=== PATIENT | female | born 1980 | race American Indian/Alaskan Native ===

== ENCOUNTER 2018-11-03 10:09 | Emergency (ER) | payer MEDICAID ==
[2018-11-03 10:09] VITALS: BMI 36.0
[2018-11-03] MEDS ORDERED: Albuterol-Ipratrop 3 mg / 0.5 (3 ml) UD IH STA (10:32)
--- NOTE | 2018-11-03 10:50 | ED PDOC ---
Arrival/HPI - General Chief Complaint: Shortness Of Breath Time Seen by Provider: 11/03/18 10:14 Historian: Patient - History of Present Illness Narrative History of Present Illness (Text): 37 year old female, with past medical history of asthma, currently on her menstrual cycle since yesterday, presents to the ED complaining of shortness of breath, cough and nasal congestion since past 4 days. Patient reports similar but mildly different symptoms to past episodes of asthma exacerbation. She notes symptoms were treated with steroids and Duoneb with mild improvement to symptoms. Patient reports associated mild chest pain and fever but no leg swelling, no recent flying, history of blood clots or any OCP usage. Patient denies any chills, headache, dizziness, diaphoresis, abdominal pain, nausea, vomiting, diarrhea, back pain, neck pain, urinary symptoms, headache, dizziness or any other complaints. Time/Duration: < week Symptom Onset: Gradual Symptom Course: Unchanged Activities at Onset: Light Context: Home Past Medical History - Provider Review Nursing Documentation Reviewed: Yes - Infectious Disease Hx of Infectious Diseases: None - Cardiac Hx Cardiac Disorders: No - Pulmonary Hx Asthma: Yes - Neurological Hx Neurological Disorder: No - HEENT Hx HEENT Disorder: No - Renal Hx Renal Disorder: No - Endocrine/Metabolic Hx Endocrine Disorders: No - Hematological/Oncological Hx Blood Disorders: No - Integumentary Hx Dermatological Disorder: No - Musculoskeletal/Rheumatological Hx Musculoskeletal Disorders: No - Gastrointestinal Hx Gastrointestinal Disorders: No - Genitourinary/Gynecological Hx Genitourinary Disorders: No - Psychiatric Hx Depression: No Hx Substance Use: No - Surgical History Hx Tubal Ligation: Yes - Anesthesia Hx Anesthesia: Yes Hx Anesthesia Reactions: No Hx Malignant Hyperthermia: No - Suicidal Assessment Feels Threatened In Home Enviroment: No Family/Social History - Physician Review Nursing Documentation Reviewed: Yes Family/Social History: Unknown Family HX Smoking Status: Former Smoker Hx Alcohol Use: No (socially) Hx Substance Use: No Hx Substance Use Treatment: No Allergies/Home Meds Allergies/Adverse Reactions: Allergies No Known Allergies Allergy (Verified 11/03/18 10:15) Review of Systems - Physician Review All systems were reviewed & negative as marked: Yes - Review of Systems Constitutional: Fevers Eyes: absent: Vision Changes ENT: Other (Nasal congestion) Respiratory: SOB, Cough Cardiovascular: Chest Pain. absent: Edema Gastrointestinal: absent: Abdominal Pain, Diarrhea, Nausea, Vomiting Genitourinary Female: absent: Dysuria, Frequency, Urine Output Changes Musculoskeletal: absent: Back Pain, Neck Pain Skin: absent: Rash Neurological: absent: Headache, Dizziness, Focal Weakness Endocrine: absent: Diaphoresis Psychiatric: absent: Anxiety Physical Exam Temperature: Afebrile Blood Pressure: Normal Pulse: Regular Respiratory Rate: Normal Appearance: Positive for: Well-Appearing, Non-Toxic, Comfortable Pain Distress: None Mental Status: Positive for: Alert and Oriented X 3 - Systems Exam Head: Present: Atraumatic, Normocephalic Pupils: Present: PERRL Extroacular Muscles: Present: EOMI Conjunctiva: Present: Normal Ears: Present: Normal, NORMAL TM, Normal Canal. No: Erythema Mouth: Present: Moist Mucous Membranes Pharnyx: Present: Normal. No: ERYTHEMA, EXUDATE, TONSILS ENLARGED Nose (External): Present: Atraumatic Nose (Internal): Present: Clear Mucous. No: Engorged, Edematous, Rhinorrhea, Purulent Mucous Neck: Present: Normal Range of Motion. No: Meningeal Signs, MIDLINE TENDERNESS Respiratory/Chest: Present: Clear to Auscultation, Good Air Exchange. No: Respiratory Distress, Accessory Muscle Use, Wheezes Cardiovascular: Present: Regular Rate and Rhythm, Normal S1, S2. No: Murmurs Abdomen: No: Tenderness, Distention, Peritoneal Signs Back: Present: Normal Inspection. No: CVA Tenderness, Midline Tenderness Upper Extremity: Present: Normal Inspection. No: Cyanosis, Edema Lower Extremity: Present: Normal Inspection. No: Edema Neurological: Present: GCS=15, CN II-XII Intact, Speech Normal Skin: Present: Warm, Dry, Normal Color. No: Rashes Psychiatric: Present: Alert, Oriented x 3, Normal Insight, Normal Concentration Medical Decision Making ED Course and Treatment: 11/03/18 10:42 Impression: 37 year old female presents to the ED for evaluation of shortness of breath, cough and nasal congestion since 4 days. Pt was seen previously at [facility] 3d prior and dx w/ asthma. Pt notes no abatement of symptoms however. No wheezes on exam however, given no wheezes will seek PE rule out w/ Dimer. Pt is low pretest wells. No chest pain or abdominal pain. No sinus pressure or meningeal signs. Plan: -- Labs -- Chest X-ray -- Duoneb -- Reassess and disposition Prior Visits: Notes and results from previous visits were reviewed. Progress Notes: 11/03/18 10:54 Patient reports she was supposed to get blood transfusion one month prior. She notes recent visit to [facility], where she did not receive a blood check. Charts reviewed, and showed hemoglobin of 10.4 in labs performed during her last visit to [facility]. 11/03/18 12:30 Chest X-ray reviewed by radiologist, shows no active disease. 11/03/18 14:56 Dimer elevated: CT PE orderd previously labs otherwise largely unremarkable, hgb improved from previous to 10.8. CT chest reviewed by radiologist, shows: IMPRESSION: Unremarkable CT pulmonary angiogram. No pulmonary embolus. Left lower lobe consolidation consistent with pneumonia 11/03/18 15:12 LLL PNA, [id number] score: 0 pt in NAD walking well w/ out desat Lungs CTA b/l w/ out wheezes clear for d/c home with abx scripts, return indications and follow up. Pt notes she has inhaler and additional steroids at home for asthma. Pt agreeable with plan. - RAD Interpretation Radiology Orders: 11/03/18 10:30 CHEST TWO VIEWS (PA/LAT) [RAD] Stat Cdl [employer]: Radiologist - Medication Orders Current Medication Orders: Discontinued Medications Albuterol/Ipratropium (Duoneb 3 Mg/0.5 Mg (3 Ml) Ud) 3 ml IH STAT STA Stop: 11/03/18 10:33 Disposition/Present on Arrival - Present on Arrival Any Indicators Present on Arrival: No History of DVT/PE: No History of Uncontrolled Diabetes: No Urinary Catheter: No History of Decub. Ulcer: No History Surgical Site Infection Following: None - Disposition Have Diagnosis and Disposition been Completed?: Yes Diagnosis: CAP (community acquired pneumonia) Disposition: HOME/ ROUTINE Disposition Time: 15:10 Condition: STABLE Discharge Instructions (ExitCare): Community-Acquired Pneumonia, Adult (DC) Additional Instructions: DIONNE RAYMOND, thank you for letting us take care of you today. Your provider was Corky Beaulieu and you were treated for shortness of breath. The emergency medical care you received today was directed at your acute symptoms. If you were prescribed any medication, please fill it and take as directed. It may take several days for your symptoms to resolve. Return to the Emergency Department if your symptoms worsen, do not improve, or if you have any other problems. Please contact your doctor or call one of the physicians/clinics you have been referred to that are listed on the Patient Visit Information form that is included in your discharge packet. Bring any paperwork you were given at dis charge with you along with any medications you are taking to your follow up visit. Our treatment cannot replace ongoing medical care by a primary care provider outside of the emergency department. Thank you for allowing the [facility] team to be part of your care today. If you had an X-Ray or CT scan: A Radiologist will review the ED reading if any change in treatment is needed we will contact you. If you had a blood, urine, or wound culture: It will take several days for the results, if any change in treatment is needed we will contact you. If you had an STI test: It will take 48 hours for the results. Please call after 1 week if you have not heard back. Prescriptions: Moxifloxacin [Avelox] 400 mg PO DAILY 10 Days #10 tab Referrals: Altagracia Clark MD [Primary Care Provider] - Follow up with primary [facility] [Outside] - [place] up with primary [facility] [place] - Follow up with primary [facility] [Outside] - Follow up with primary Forms: [facility] (Arabic)
[2018-11-03 10:57] VITALS: TEMP 98.5
[2018-11-03 11:32] LABS: BASO # 0.02 K/mm3 (0.0-2.0); BASO % 0.2 % (0.0-3.0); EOS # 0.1 (0.0-0.7); EOS % 0.6 % (1.5-5.0); HEMOGLOBIN 10.8 g/dL (12.0-16.0); LYMPH # 1.8 (1.2-3.4); MEAN CELL VOLUME 85.7 fl (80.0-105.0); MEAN CORPUSCULAR HEMOGLOBIN 26.5 pg (25.0-35.0); MEAN CORPUSCULAR HGB CONC 30.9 g/dl (31.0-37.0); MEAN PLATELET VOLUME 11.2 fl (7.0-11.0); MONO # 1.2 (0.1-0.6); MONO % 10.1 % (1.0-6.0); RBC 4.07 10^6/uL (3.5-6.1); WHITE BLOOD COUNT 11.9 10^3/uL (4.5-11.0)
[2018-11-03 11:41] LABS: ALB/GLOB RATIO 0.9 (1.1-1.8); ALBUMIN 3.6 g/dL (3.0-4.8); ALT/SGPT 13 U/L (7-56); AST/SGOT 25 U/L (14-36); BLOOD UREA NITROGEN 8 mg/dL (7-21); CALCIUM 8.9 mg/dL (8.4-10.5); GFR NON-AFRICAN AMERICAN > 60
[2018-11-03 11:49] LABS: INR 1.25; PARTIAL THROMBOPLASTIN TIME 32.3 Seconds (26.9-38.3); PROTHROMBIN TIME 14.1 SECONDS (9.4-12.5)
[2018-11-03 11:51] LABS: TROPONIN I < 0.01 ng/mL
[2018-11-03] MEDS ORDERED: Sodium Chloride 0.9% 1,000 ML IV ONE (12:00)
--- NOTE | 2018-11-03 12:21 | RAD ---
Date of service: 11/03/2018 HISTORY: cough COMPARISON: No prior. TECHNIQUE: Chest PA and lateral views FINDINGS: LUNGS: No active pulmonary disease. PLEURA: No significant pleural effusion identified. No pneumothorax apparent. CARDIOVASCULAR: No aortic atherosclerotic calcification present. Normal cardiac size. No pulmonary vascular congestion. OSSEOUS STRUCTURES: No significant abnormalities. VISUALIZED UPPER ABDOMEN: Normal. OTHER FINDINGS: None. IMPRESSION: No active disease.
[2018-11-03 13:21] VITALS: RESP 18
[2018-11-03] MEDS ORDERED: Iohexol 350 MG/100 ML VIAL ONE (14:11)
--- NOTE | 2018-11-03 14:53 | CT ---
Date of service: 11/03/2018 PROCEDURE: CT Chest with contrast (Pulmonary Angiogram) HISTORY: elevated dimer, cough COMPARISON: None available. TECHNIQUE: Axial computed tomography images were obtained of the chest in the pulmonary arterial phase of enhancement. Coronal and sagittal reformatted images were created and reviewed. Intravenous contrast dose: 100 cc of Omni 350 Radiation dose: Total exam DLP = 478.83 mGy-cm. This CT exam was performed using one or more of the following dose reduction techniques: Automated exposure control, adjustment of the mA and/or kV according to patient size, and/or use of iterative reconstruction technique. FINDINGS: PULMONARY ARTERIES: Unremarkable. No pulmonary embolism. AORTA: No acute findings. No thoracic aortic aneurysm. No aortic atherosclerotic calcification or mural plaque present. LUNGS: Left lower lobe consolidation consistent with pneumonia PLEURAL SPACES: Small left effusion HEART: Unremarkable. No cardiomegaly. No significant pericardial effusion. LYMPH NODES: No lymphadenopathy. BONES, CHEST WALL: Unremarkable. No fracture or destructive lesion OTHER FINDINGS: Unremarkable. IMPRESSION: Unremarkable CT pulmonary angiogram. No pulmonary embolus. Left lower lobe consolidation consistent with pneumonia
[2018-11-03 15:19] VITALS: BP 129/69; PULSE 80; O2SAT 99
== END 2018-11-03 15:49 | disposition home or self-care (01) ==
LOC: ED 10:09
DX: J18.9 Pneumonia, unspecified organism (principal); Z87.891 Personal history of nicotine dependence
CPT/HCPCS: 71046; 71275; 80053; 81025; 84484; 85025; 85378; 85610; 85730; 86850; 86900; 94640; 96360; 96361; 99285; J7030; Q9967